=== PATIENT | female | born 1990 | race Caucasian/White ===

== ENCOUNTER 2020-10-08 21:40 | Emergency (ER) | payer OTHER ==
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
[2020-10-08] MEDS ORDERED: Ibuprofen 600 MG Tab PO ONE (22:26)
== END 2020-10-08 22:30 | disposition home or self-care (01) ==
LOC: JP.ED 21:40
DX: F10.120 Alcohol abuse with intoxication, uncomplicated (principal); Z88.0 Allergy status to penicillin
CPT/HCPCS: 99283; A9270; 99282